=== PATIENT | female | born 2005 | race African-American/Black ===

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

== ENCOUNTER 2023-06-27 11:19 | Emergency (ER) | payer OTHER ==
[2023-06-27] MEDS ORDERED: Dexamethasone 10 MG/ML VIAL ONE (11:53)
[2023-06-27] MEDS ORDERED: diphenhydrAMINE 25 MG CAP ONE (11:53)
[2023-06-27] MEDS ORDERED: Metoclopramide HCl 10 MG TAB ONE (11:53)
== END 2023-06-27 12:09 | disposition home or self-care (01) ==
LOC: MADERS 11:19
DX: R51.9 Headache, unspecified (principal); H92.02 Otalgia, left ear
CPT/HCPCS: 99283; J1100

== ENCOUNTER 2024-07-28 23:38 | Emergency (ER) | payer OTHER, SELFPAY ==
[2024-07-29] MEDS ORDERED: Bupivacaine PF 0.5% 30 ML VIAL ONE (00:23)
[2024-07-29] MEDS ORDERED: HYDROcodone/Acetaminophen 5/325 mg Tablet ONE (00:36)
== END 2024-07-29 00:49 | disposition home or self-care (01) ==
LOC: MADERS 23:38
DX: K08.89 Other specified disorders of teeth and supporting structures (principal)
CPT/HCPCS: 99282; J0665